=== PATIENT | male | born 1935 | race Caucasian/White ===

== ENCOUNTER 2017-08-04 18:45 | Emergency (ER) | payer MEDICARE, OTHER ==
[~2017-08-04] VITALS: Ht 182.9 cm; Wt 79.4 kg
[~2017-08-04 18:45] MED LIST: BACTRIM DS TAB1 EACH PO; D3 + K2 DOTS 11 EACH PO; IRON325 PO; KEFLEX500 MG PO; MULTIVITAMINS1 EAC7 PO; NEXIUM40 MG PO; TUMS PO; VITAMIN D1000 UNI2 PO; VITAMINC500 PO
[2017-08-04 19:25] LABS: ABSOLUTE EOSINOPHILS 0.2 thou/uL (0.0-0.7); ABSOLUTE LYMPHOCYTES 1.2 thou/uL (0.8-5.3); ABSOLUTE MONOCYTES 0.2 thou/uL (0.0-1.2); ABSOLUTE NEUTROPHILS 2.6 thou/uL (1.6-8.1); BASOPHILS 0.7 %; EOSINOPHILS 3.9 %; LYMPHOCYTES 28.3 %; MCH 31.1 pg (26.0-34.0); MCHC 34.2 g/dL (28.0-37.0); MCV 91.2 fL (80.0-100.0); MONOCYTES 5.7 %; MPV 8.4 fl. (7.2-11.1); NUCLEATED RBCS 0 /100WBC; PLATELET COUNT* 199 thou/uL (150-400); POLYS 61.4 %; RBC 4.17 mil/uL (4.50-6.00); RDW-CV 12.5 % (10.5-14.5); WBC 4.3 thou/uL (4.0-11.0)
[2017-08-04 19:37] LABS: ANION GAP 5 mmol/L (7-16); BUN 14 mg/dL (7-18); CALCIUM 8.4 mg/dL (8.5-10.1); CHLORIDE 107 mmol/L (98-107); CO2 31 mmol/L (21-32); GLUCOSE 217 mg/dL (70-99); POTASSIUM 3.7 mmol/L (3.5-5.1); SODIUM 143 mmol/L (136-145)
[2017-08-04 19:46] LABS: ALBUMIN 3.3 g/dL (3.4-5.0); ALKALINE PHOSPHATASE 83 U/L (46-116); NT-PRO BRAIN NAT PEPTIDE 272 pg/mL (<300); SGOT 25 U/L (15-37); SGPT 29 U/L (30-65); TOTAL BILIRUBIN 0.3 mg/dL (<0.1-1.0); TOTAL PROTEIN 6.4 g/dL (6.4-8.2); TROPONIN-I LEVEL <0.06 ng/mL (<0.06)
[2017-08-04] MEDS ORDERED: LORATIDINE 10 M10 M1 PO (22:02)
[2017-08-04] MEDS ORDERED: MEDROLDOSEPACK PO (22:02)
[2017-08-04] MEDS ORDERED: CLEOCIN HCL150 MG PO (22:02)
[2017-08-04] MEDS ORDERED: AFRIN15 ML NS (22:02)
[2017-08-04 22:22] VITALS: BP 130/80
== END 2017-08-04 22:22 | disposition home or self-care (01) ==
LOC: M.ERS 18:45
PROVIDERS: Physician Assistant
DX: J01.91 Acute recurrent sinusitis, unspecified (principal); Z88.1 Allergy status to other antibiotic agents; Z88.8 Allergy status to other drugs, medicaments and biological substances

== ENCOUNTER 2018-02-03 18:54 | Emergency (ER) | payer MEDICARE, OTHER ==
[~2018-02-03] VITALS: Ht 185.4 cm; Wt 77.1 kg
[~2018-02-03 18:54] MED LIST changes: +AFRIN15 ML NS; +CLEOCIN HCL150 MG PO; +LORATIDINE 10 M10 M1 PO; +MEDROLDOSEPACK PO
[2018-02-03] MEDS ORDERED: NASONEX17 GM NASAL (19:03)
[2018-02-03] MEDS ORDERED: ZINC10 MG PO (19:03)
[2018-02-03] MEDS ORDERED: KEFLEX500 M1 PO (19:19)
[2018-02-03 19:34] VITALS: BP 106/84
== END 2018-02-03 19:34 | disposition home or self-care (01) ==
LOC: M.ERS 18:54
DX: S61.217A Laceration without foreign body of left little finger without damage to nail, initial encounter (principal); S61.211A Laceration without foreign body of left index finger without damage to nail, initial encounter; S60.312A Abrasion of left thumb, initial encounter; Z88.1 Allergy status to other antibiotic agents; Z88.8 Allergy status to other drugs, medicaments and biological substances; X58.XXXA Exposure to other specified factors, initial encounter; Y93.89 Activity, other specified; Y92.89 Other specified places as the place of occurrence of the external cause; Y99.8 Other external cause status